=== PATIENT | female | born 1990 | race Caucasian/White ===

== ENCOUNTER 2018-04-09 08:45 | Emergency (ER) | payer OTHER ==
[~2018-04-09] VITALS: Ht 162.6 cm; Wt 68.0 kg
[~2018-04-09 08:45] MED LIST: LAMO200T PO; TOPI100T33 PO
[2018-04-09 08:51] VITALS: BP 106/77
--- NOTE | 2018-04-09 09:03 | NUR ---
PT AMBULATES TO BED 11
--- NOTE | 2018-04-09 09:03 | NUR ---
REPORT GIVEN TO LISA MARQUEZ
--- NOTE | 2018-04-09 09:05 | NUR ---
27Y/F BIB [facility] C/O DIZZY, HEAD ACHE. PT STATES " THE H/A AND DIZZINESS STARTED LAST NIGHT AROUND 2129 WITH DOUBLE VISSION." PT WAS ASSITED TO BED WITH WHEEL CHAIR; PT DENIES ANY N/V/D; PT STATES LAST SEIZURE WAS IN AUGUST 2017. PT'S SKIN IS PINK/WARM/DRY; AAOX4; LUNGS CLEAR BL; HR EVEN AND REGULAR; PT DENIES ANY FEVER, CP, SOB, OR COUGH AT THIS TIME; PATIENT STATES PAIN OF 0/10 AT THIS TIME; VSS; PATIENT POSITIONED FOR COMFORT; HOB ELEVATED; BEDRAILS UP X1; BED DOWN. ER MD MADE AWARE OF PT STATUS. HX; EPILEPSY, ANXIETY RX; LAMOTRIGINE, ALPRAZOLAM, FOLIC ACID, TOPIRAMATE
--- NOTE | 2018-04-09 09:14 | NUR ---
Patient being evaluated by physician at bedside.
--- NOTE | 2018-04-09 09:14 | NUR ---
LAB AT BEDSIDE
[2018-04-09] MEDS ORDERED: NACL 0.9% 1,000 ML IV ONE (09:15)
[2018-04-09] MEDS ORDERED: PROCHLORPERAZINE 10 MG/2 ML VIAL IVP ONE (09:15)
--- NOTE | 2018-04-09 09:15 | NUR ---
PT TAKEN TO CT
--- NOTE | 2018-04-09 09:20 | NUR ---
PT BACK FROM CT
[2018-04-09 09:55] LABS: HEMOGLOBIN 14.2 g/dL (12.0-16.0); RED BLOOD CELL COUNT(AUTO) 4.57 MIL/uL (4.20-5.40); WHITE BLOOD COUNT (AUTO) 7.5 K/uL (4.8-10.8)
[2018-04-09 09:56] LABS: HEMATOCRIT 42.1 % (36-48); LYMPHOCYTES % (AUTO) 26.1 % (20.5-51.1); MEAN CORPUSCULAR HEMOGLOBIN 31 pg (27-31); MEAN CORPUSCULAR HGB CONC 34 g/dL (33-37); MEAN CORPUSCULAR VOLUME 92.3 fL (80-94); NEUTROPHILS % (AUTO) 60.5 % (42.2-75.2); PLATELET COUNT (AUTO) 346 K/uL (140-450); RED CELL DISTRIBUTION WIDTH 13.1 % (11.6-13.7)
[2018-04-09 09:57] LABS: BASOPHILS % (AUTO) 1.7 % (0.0-2.0); EOSINOPHILS % (AUTO) 4.5 % (0.0-4.0); MONOCYTES % (AUTO) 7.2 % (1.7-9.3)
[2018-04-09 10:43] LABS: ALBUMIN 4.6 g/dL (3.4-5.0); ANION GAP 12.6 (8-16); CARBON DIOXIDE 24.4 mmol/L (21-32); CREATININE 1.2 mg/dL (0.6-1.3); TOTAL BILIRUBIN 0.3 mg/dL (0.0-1.0)
[2018-04-09 11:10] VITALS: BP 105/75
--- NOTE | 2018-04-09 11:10 | NUR ---
Patient discharged with v/s stable. Written and verbal after care instructions given and explained. Patient alert, oriented and verbalized understanding of instructions. Ambulatory with steady gait. All questions addressed prior to discharge. ID band removed. Patient advised to follow up with PMD. Rx of antivert given. Patient educated on indication of medication including possible reaction and side effects. Opportunity to ask questions provided and answered.
== END 2018-04-09 11:10 | disposition home or self-care (01) ==
LOC: MED 08:45
DX: R42 Dizziness and giddiness (principal); R51 Headache; F41.9 Anxiety disorder, unspecified; Z79.899 Other long term (current) drug therapy
CPT/HCPCS: 36415; 70450; 80053; 81025; 85025; 96361; 96374; 99285; J0780; J7030

== ENCOUNTER 2019-02-24 13:49 | Emergency (ER) | payer OTHER ==
[~2019-02-24] VITALS: Ht 162.6 cm; Wt 67.1 kg
[2019-02-24 13:53] VITALS: BP 123/78
--- NOTE | 2019-02-24 14:03 | NUR ---
Patient ambulated to bed 6
--- NOTE | 2019-02-24 14:06 | NUR ---
Patient moved from bed 6 to bed 11
--- NOTE | 2019-02-24 14:10 | NUR ---
SEIZURE PRECAUTIONS IN PLACE
--- NOTE | 2019-02-24 14:15 | NUR ---
28 Y FEMALE BIB [facility] C/O SEIZURES SINCE LAST NIGHT, 5 UNWITTNESSED SEIZURES LAST NIGHT, 3 WITTNESSED SEIZURES LASTING ONLY SECONDS THIS MORNING. PER PT PAL, LAST SEIZURE WAS 10 MIN AGO. PT ALERT AND ANSWERING QUESTIONS APPROPRIATELY. PATIENT STATES SHE SEES A NEUROLOGIST AND IS SCHEDULED TO SEE HIM NEXT MONTH. AT THIS TIME. PT STATES SHE HAS NO SYMPTOMS. PT NEURO INTACT. AA0X4. EQUAL ARM HELP DESK ADMINISTRATOR. ARM AND FACIAL SYMMETRY. MEMORY INTACT. LETICIA EQUAL. BED IS DWON, LOCKED, BED RAIL X 1, ERMD TO SEE PT. HX: EPILEPSY RX: LAMICTAL, TOPAMAX, FOLIC ACID
--- NOTE | 2019-02-24 14:16 | NUR ---
DR KAMARA AT BEDSIDE
--- NOTE | 2019-02-24 14:22 | NUR ---
[facility] DR KAMARA, CONTINUE TO MONITOR PT. CHOCOLATE PRODUCTION MACHINE OPERATOR WILL GET IN TOUCH WITH PTS NEUROLOGIST SO THAT DR KAMARA CAN SPEAK WITH HIM.
--- NOTE | 2019-02-24 14:30 | NUR ---
DR KAMARA SPEAKING TO PTS NEUROLOGIST
--- NOTE | 2019-02-24 14:42 | NUR ---
LAB AT BEDSIDE
[2019-02-24 15:06] VITALS: BP 123/78
--- NOTE | 2019-02-24 15:06 | NUR ---
Patient discharged with v/s stable. Written and verbal after care instructions given and explained. Patient alert, oriented and verbalized understanding of instructions. Ambulatory with steady gait. All questions addressed prior to discharge. ID band removed. Patient advised to follow up with NEUROLOGIST. Rx of XANAX given. Patient educated on indication of medication including possible reaction and side effects. Opportunity to ask questions provided and answered.
[2019-02-27 10:07] LABS: LAMOTRIGINE 9.1 ug/mL (2.0-20.0)
== END 2019-02-24 15:06 | disposition home or self-care (01) ==
LOC: MED 13:49
DX: G40.909 Epilepsy, unspecified, not intractable, without status epilepticus (principal); Z79.899 Other long term (current) drug therapy
CPT/HCPCS: 36415; 80299; 99283

== ENCOUNTER 2019-04-21 06:25 | Emergency (ER) | payer OTHER ==
[~2019-04-21] VITALS: Ht 162.6 cm; Wt 65.8 kg
[2019-04-21 06:30] VITALS: BP 125/80
--- NOTE | 2019-04-21 06:37 | NUR ---
PT AMBULATED TO BED #11
--- NOTE | 2019-04-21 07:07 | NUR ---
report recieved from marques toledo. pt aa0x4. gcs 15. seizure precautions in place. pt given blanket for comfort. mother bedside.
--- NOTE | 2019-04-21 07:09 | NUR ---
dr garsia at bedside
[2019-04-21] MEDS ORDERED: LORazepam 2 MG/ML VIAL IM ONE (07:20)
--- NOTE | 2019-04-21 07:33 | NUR ---
ativan administered im left deltoid. pt tolerated well
[2019-04-21] MEDS ORDERED: FOLI1TAB90 PO (08:07)
[2019-04-21] MEDS ORDERED: TOP100 PO (08:08)
[2019-04-21] MEDS ORDERED: LAM200 PO (08:11)
--- NOTE | 2019-04-21 08:12 | NUR ---
REGULAR DIET ORDERED FOR PT
--- NOTE | 2019-04-21 08:26 | NUR ---
LAB AT BEDSIDE
--- NOTE | 2019-04-21 08:30 | NUR ---
PT EATING AT BEDSIDE
[2019-04-21 09:33] VITALS: BP 120/77
--- NOTE | 2019-04-21 09:33 | NUR ---
Patient discharged with v/s stable. Written and verbal after care instructions given and explained. PT INSTRUCTED TO GO STRAIGHT TO NEUROLOGIST TO FOLLOW UP. Patient verbalized understanding. Ambulatory with steady gait. All questions addressed prior to discharge.
[2019-04-25 15:09] LABS: LAMOTRIGINE 16.5 ug/mL (2.0-20.0)
== END 2019-04-21 09:33 | disposition home or self-care (01) ==
LOC: MED 06:25
DX: G40.909 Epilepsy, unspecified, not intractable, without status epilepticus (principal); Z79.899 Other long term (current) drug therapy
CPT/HCPCS: 36415; 80201; 80299; 96372; 99283; J2060

== ENCOUNTER 2019-04-30 06:50 | Emergency (ER) | payer OTHER ==
[~2019-04-30] VITALS: Ht 162.6 cm; Wt 65.8 kg
[~2019-04-30 06:50] MED LIST changes: +FOLI1TAB90 PO; +LAM200 PO; -LAMO200T PO; +TOP100 PO; -TOPI100T33 PO
--- NOTE | 2019-04-30 06:53 | NUR ---
PT TAKEN TO BED 2
[2019-04-30 06:55] VITALS: BP 113/63
--- NOTE | 2019-04-30 06:58 | NUR ---
28 yo female bib fiance for c/o seizures. pt states she recently saw neurologist and had new RX of topamax and lamictal, external EEG placed 04/29. pt AAOx4 following commands. per fiance x2 episodes partial seizures noted, seizure precautions in place. earline locked in lowest position. will update ERMD. hx: head injury x10 years ago, epilepsy denies allergies lmp: 03/26
--- NOTE | 2019-04-30 07:05 | NUR ---
RECEIVED REPORT FROM LISA RENE. PT IS CRISTAL, VSS AT THIS TIME. NO SEIZURE NOTED AT THIS TIME. SEIZURE PRECAUTIONS IN PLACE.
--- NOTE | 2019-04-30 07:15 | NUR ---
DR. BISWAS EVALUATING PATIENT AT BEDSIDE. PER DR. BISWAS, PATIENT DOES NOT NEED IV ACCESS PLACED.
[2019-04-30] MEDS: LORazepam 2 MG/ML VIAL IM ONE (07:22)
[2019-04-30 07:39] VITALS: BP 127/78
--- NOTE | 2019-04-30 07:40 | NUR ---
Patient discharged with v/s stable. Written and verbal after care instructions given and explained. Patient verbalized understanding. Ambulatory with steady gait. All questions addressed prior to discharge. Advised to follow up with PMD.
== END 2019-04-30 07:40 | disposition home or self-care (01) ==
LOC: MED 06:50
DX: R56.9 Unspecified convulsions (principal); Z79.899 Other long term (current) drug therapy
CPT/HCPCS: 96372; 99283; J2060

== ENCOUNTER 2019-06-16 06:27 | Emergency (ER) | payer OTHER ==
[~2019-06-16] VITALS: Ht 162.6 cm; Wt 68.0 kg
[2019-06-16 06:35] VITALS: BP 121/65
[2019-06-16] MEDS: LORazepam 2 MG/ML VIAL IM ONE (07:40)
== END 2019-06-16 08:09 | disposition home or self-care (01) ==
LOC: MED 06:27
DX: G40.409 Other generalized epilepsy and epileptic syndromes, not intractable, without status epilepticus (principal); Z79.899 Other long term (current) drug therapy
CPT/HCPCS: 96372; 99283; J2060

== ENCOUNTER 2019-07-14 04:07 | Emergency (ER) | payer OTHER ==
[~2019-07-14] VITALS: Ht 162.6 cm; Wt 68.0 kg
[2019-07-14 04:09] VITALS: BP 94/65
[2019-07-14 04:20] VITALS: BP 118/81
[2019-07-14] MEDS ORDERED: levETIRAcetam 500 MG in NACL 0.9% 100 ML IV ONE (04:40)
[2019-07-14] MEDS ORDERED: levETIRAcetam 100 MG/ML VIAL IV ONE (04:50)
[2019-07-14 05:54] VITALS: BP 119/78
== END 2019-07-14 05:54 | disposition home or self-care (01) ==
LOC: MED 04:07
DX: G40.909 Epilepsy, unspecified, not intractable, without status epilepticus (principal); Z79.899 Other long term (current) drug therapy
CPT/HCPCS: 96365; 99283; J1953

== ENCOUNTER 2019-07-24 09:34 | Emergency (ER) | payer OTHER ==
[~2019-07-24] VITALS: Ht 162.6 cm; Wt 68.0 kg
--- NOTE | 2019-07-24 09:34 | NUR ---
pt arrived to ed with fiance c/o poss sz x 6am today. pt states she had 10 eppisode of sz since then, each lasting 5 sec with 10min interval. a & o x 4. no loc. no injury or truama to tongue or oral cavity. airway patent and clear. 3mm perrla. denies any injury, falls, or truama. steady gait. no blurry vision or dizziness. vss. fiance at bedside. sz precaution initiated, bed at low level with sz pads placed. pmh: epilespy nka.
[2019-07-24 09:37] VITALS: BP 113/67
--- NOTE | 2019-07-24 09:47 | NUR ---
PT TAKEN TO ER BED 07
--- NOTE | 2019-07-24 09:56 | NUR ---
at bedside to agustina lorenzana
[2019-07-24] MEDS ORDERED: LORazepam 2 MG/ML VIAL IM ONE (10:00)
[2019-07-24 10:16] VITALS: BP 113/67
== END 2019-07-24 10:16 | disposition home or self-care (01) ==
LOC: MED 09:34
DX: R56.9 Unspecified convulsions (principal); Z79.899 Other long term (current) drug therapy
CPT/HCPCS: 81002; 81025; 96372; 99283; J2060

== ENCOUNTER 2019-07-24 13:40 | Emergency (ER) | payer OTHER ==
[~2019-07-24] VITALS: Ht 162.6 cm; Wt 68.0 kg
--- NOTE | 2019-07-24 13:44 | NUR ---
PT IN WHEELCHAIR TO ER BED 04
[2019-07-24 13:45] VITALS: BP 121/81
[2019-07-24] MEDS ORDERED: LORazepam 2 MG/ML VIAL IVP ONE (13:50)
[2019-07-24 14:04] LABS: BASOPHILS % (AUTO) 0.3 % (0.0-2.0); EOSINOPHILS # (AUTO) 0.4 K/uL (0-0.4); EOSINOPHILS % (AUTO) 4.1 % (0.0-4.0); HEMATOCRIT 43.9 % (36-48); HEMOGLOBIN 15.1 g/dL (12.0-16.0); LYMPHOCYTES % (AUTO) 27.8 % (20.5-51.1); MEAN CORPUSCULAR HEMOGLOBIN 32 pg (27-31); MEAN CORPUSCULAR HGB CONC 35 g/dL (33-37); MEAN CORPUSCULAR VOLUME 92.7 fL (80-94); MONOCYTES # (AUTO) 0.8 K/uL (0.8-1.0); NEUTROPHILS # (AUTO) 6.5 K/uL (1.8-7.7); NEUTROPHILS % (AUTO) 60.8 % (42.2-75.2); PLATELET COUNT (AUTO) 429 K/uL (140-450); RED BLOOD CELL COUNT(AUTO) 4.74 MIL/uL (4.20-5.40); RED CELL DISTRIBUTION WIDTH 13.4 % (11.6-13.7); WHITE BLOOD COUNT (AUTO) 10.7 K/uL (4.8-10.8)
--- NOTE | 2019-07-24 14:09 | NUR ---
MEDICATED PT ORDERED. SIDE RAIULS UP WITH HOB ELEVETED AT 30 DEGREE. BEDAT THE LOWEST POSITION.PT STABLE, FAMILY AT THE BEDSIDE. WILL CONTINUE TO MONITOR PT.
--- NOTE | 2019-07-24 14:16 | NUR ---
PATIENT PRESENTS TO ED C/O REOCCURENCE OF SEIZURE EPISODES. PT WAS IN THE ED 4 HOURS AGO C/O SEIZURE EPISODES LASTING 5 SECS WITH 5MIN INTERVALS. ATIVAN IM WAS GIVEN AT THE ED. PT STATES THAT INTERVAL OF EPISODES BECAME LONGER AFTER MEDICATION. A FEW HOURS AFTER, PT NOTED THE SEIZURE EPISODES TO [place]- LASTING 10-15SECS, WITH 5 MIN INTERVALS. PT IS AOOX4 WITH STEADY GAIT. GCS 15. PERLL 3MM PUPILS. PT DENIES LOC, VOMITING, H/A. PATIENT STATES PAIN OF 0/10 AT THIS TIME; VSS; PATIENT POSITIONED FOR COMFORT; HOB ELEVATED; BEDRAILS UP X2; BED DOWN. ER MD MADE AWARE OF PT STATUS. pmh: epilespy nka.
[2019-07-24 14:17] LABS: ANION GAP 15.3 (8-16); CARBON DIOXIDE 25.6 mmol/L (21-32); CREATININE 0.9 mg/dL (0.6-1.3); POTASSIUM 3.9 mmol/L (3.5-5.1)
[2019-07-24 14:45] VITALS: BP 121/81
--- NOTE | 2019-07-24 14:45 | NUR ---
Patient discharged with v/s stable. Written and verbal after care instructions given and explained. Patient alert, oriented and verbalized understanding of instructions. Ambulatory with steady gait. All questions addressed prior to discharge. ID band removed. Patient advised to follow up with PMD. Opportunity to ask questions provided and answered.
== END 2019-07-24 14:45 | disposition home or self-care (01) ==
LOC: MED 13:40
DX: R56.9 Unspecified convulsions (principal); Z79.899 Other long term (current) drug therapy
CPT/HCPCS: 36415; 80048; 85025; 96374; 99283; J2060

== ENCOUNTER 2019-07-31 04:16 | Emergency (ER) | payer OTHER ==
[~2019-07-31] VITALS: Ht 162.6 cm; Wt 68.0 kg
[2019-07-31 04:20] VITALS: BP 131/76
--- NOTE | 2019-07-31 04:30 | NUR ---
OBSERVED PT HOLDING LEFT SIDE OF FACE WITH EYES CLOSED. SPO2 REMAINED 98% THROUGHOUT. LEFT LEG OBSEVRED BOUNCING UP AND DOWN. NO LOC, EYE ROLLING, DROOLING, SPASTICITY NOTED. STATES "I HOLD MY FACE DURING MY SEIZURE TO KEEP MY JAW FROM SHIFTING AND TO PROTECT MY TONGUE".
--- NOTE | 2019-07-31 04:34 | NUR ---
BROUGHT TO BED 09 VIA WC ASSIST. ACCOMPANYING.
--- NOTE | 2019-07-31 04:35 | NUR ---
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 PER PT, EXPERIENCES LEFT SIDE FACIAL SPASMING WITH JAW TIGHTENING X 10 SECONDS OR LONGER EVERY 3 MINUTES. REPORTS DIFFICULTY BREATHING DURING SEIZURE. DENIES LOC, LOSS OF BOWEL/BLADDER FUNCTION. PT REMAINS CONSCIOUS AND AWARE DURING SEZIURE ACTIVITY. EVEN UNLABORED BREATHING NOTED. CLEAR BILAT LUNG SOUNFDS. NO PAIN REPORTED. ABLE TO MAKE NEEDS KNOWN. WILL CONTINUE TO MONITOR. BOYFRIEND AT BEDSIDE. PMH-- SEZIURES RX-- FOLIC ACID, LAMICTAL, TOPAMAX
[2019-07-31] MEDS ORDERED: levETIRAcetam 1,000 MG in NACL 0.9% 100 ML IV ONE (05:35)
--- NOTE | 2019-07-31 05:45 | NUR ---
PT LAYING IN BED NO SIGNS OF DISTRESS. BOYFRIEND AT BEDSIDE. NO COMPLAINTS AT THIS TIME.
[2019-07-31] MEDS ORDERED: levETIRAcetam 100 MG/ML VIAL IV ONE ×2 (05:49→05:52)
[2019-07-31 06:20] LABS: BASOPHILS % (AUTO) 0.3 % (0.0-2.0); EOSINOPHILS # (AUTO) 0.5 K/uL (0-0.4); EOSINOPHILS % (AUTO) 4.9 % (0.0-4.0); HEMATOCRIT 42.7 % (36-48); HEMOGLOBIN 14.3 g/dL (12.0-16.0); LYMPHOCYTES # (AUTO) 2.8 K/uL (2.5-16.5); LYMPHOCYTES % (AUTO) 26.9 % (20.5-51.1); MEAN CORPUSCULAR HEMOGLOBIN 31 pg (27-31); MEAN CORPUSCULAR HGB CONC 34 g/dL (33-37); MEAN CORPUSCULAR VOLUME 93.3 fL (80-94); MONOCYTES # (AUTO) 0.8 K/uL (0.8-1.0); MONOCYTES % (AUTO) 7.9 % (1.7-9.3); NEUTROPHILS # (AUTO) 6.2 K/uL (1.8-7.7); PLATELET COUNT (AUTO) 380 K/uL (140-450); RED BLOOD CELL COUNT(AUTO) 4.58 MIL/uL (4.20-5.40); RED CELL DISTRIBUTION WIDTH 13.2 % (11.6-13.7); WHITE BLOOD COUNT (AUTO) 10.3 K/uL (4.8-10.8)
[2019-07-31 06:24] LABS: ANION GAP 15.6 (8-16); CARBON DIOXIDE 22.8 mmol/L (21-32); CREATININE 0.9 mg/dL (0.6-1.3); POTASSIUM 4.4 mmol/L (3.5-5.1)
[2019-07-31 07:14] VITALS: BP 133/86
== END 2019-07-31 07:14 | disposition home or self-care (01) ==
LOC: MED 04:16
DX: G40.909 Epilepsy, unspecified, not intractable, without status epilepticus (principal); Z79.899 Other long term (current) drug therapy
CPT/HCPCS: 36415; 80048; 81002; 81025; 85025; 96365; 99283; J1953

== ENCOUNTER 2021-05-02 09:56 | Emergency (ER) | payer OTHER ==
[~2021-05-02] VITALS: Ht 165.1 cm; Wt 79.5 kg
[2021-05-02 10:08] VITALS: BP 130/84
--- NOTE | 2021-05-02 10:15 | NUR ---
LOBBY. PT GIVEN URINE CUP
--- NOTE | 2021-05-02 11:03 | NUR ---
30 Y/O FEMALE C/O ABDOMINAL PAIN X3 DAYS. +NAUSEA WITH CONSTIPATION. PT REPORTS RUQ ABDOMINAL PAIN THAT SHE DESCRIBES SHARP, 7/10 TODAY. ALSO REPORTS FEELING BLOATED AND TAKING "GAS-X" WITH MINIMAL RELIEF. PATIENT A&OX4, AMBULATORY WITH A STEADY GAIT, DENIES CP OR SOB, CAP REFILL <2. PMH:NONEPILEPTIC SEIZURES (LAST SEIZURE 2 DAYS AGO) ALLERGIES: CLARITIN RX: DENIES
--- NOTE | 2021-05-02 11:06 | NUR ---
Patient ambulated to ER bed 1.
--- NOTE | 2021-05-02 11:15 | NUR ---
LATE ENTRY: US AT THE BEDSIDE.
--- NOTE | 2021-05-02 11:20 | NUR ---
LATE ENTRY: LABS DRAWN AND GIVEN TO [facility].
[2021-05-02 11:28] LABS: BASOPHILS % (AUTO) 0.1 % (0.0-2.0); EOSINOPHILS # (AUTO) 0.3 K/uL (0-0.4); EOSINOPHILS % (AUTO) 2.7 % (0.0-4.0); HEMATOCRIT 42.5 % (36-48); HEMOGLOBIN 14.4 g/dL (12.0-16.0); LYMPHOCYTES # (AUTO) 3.2 K/uL (2.5-16.5); LYMPHOCYTES % (AUTO) 25.8 % (20.5-51.1); MEAN CORPUSCULAR HEMOGLOBIN 31 pg (27-31); MEAN CORPUSCULAR HGB CONC 34 g/dL (33-37); MEAN CORPUSCULAR VOLUME 90.2 fL (80-94); NEUTROPHILS # (AUTO) 7.9 K/uL (1.8-7.7); NEUTROPHILS % (AUTO) 63.4 % (42.2-75.2); PLATELET COUNT (AUTO) 320 K/uL (140-450); RED BLOOD CELL COUNT(AUTO) 4.71 MIL/uL (4.20-5.40); RED CELL DISTRIBUTION WIDTH 13.6 % (11.6-13.7); WHITE BLOOD COUNT (AUTO) 12.4 K/uL (4.8-10.8)
[2021-05-02 11:39] LABS: ALBUMIN 3.9 g/dL (3.4-5.0); ANION GAP 11.4 (8-16); CREATININE 0.9 mg/dL (0.6-1.3); POTASSIUM 4.4 mmol/L (3.5-5.1); TOTAL BILIRUBIN 0.6 mg/dL (0.0-1.0)
[2021-05-02] MEDS ORDERED: MIRABULK PO (12:34)
--- NOTE | 2021-05-02 12:49 | NUR ---
WENT OUT TO DISCHARGE PATIENT AND NO ANSWER IN ER LOBBY.
--- NOTE | 2021-05-02 12:49 | NUR ---
PT LEFT WITHOUT DISCHARGE INSTRUCTIONS.
--- NOTE | 2021-05-02 14:04 | NUR ---
IV removed, catheter intact and site benign. Applied folded 4x4 gauze and tape to stop bleeding.
[2021-05-05] MEDS ORDERED: ACET-9525 PO (09:12)
== END 2021-05-02 12:49 | disposition home or self-care (01) ==
LOC: MED 09:56
DX: K59.00 Constipation, unspecified (principal); R11.10 Vomiting, unspecified
CPT/HCPCS: 36415; 76705; 80053; 81002; 81025; 83690; 85025; 99284